=== PATIENT | female | born 1985 | race Two or more races ===

== ENCOUNTER 2016-12-19 18:39 | Emergency (ER) | payer OTHER ==
[2016-12-19] MEDS ORDERED: ALBUTEROL SULFATE 5MG/ML INHALANT 20 ML BOT ONE (19:07)
[2016-12-19] MEDS ORDERED: IPRATROPIUM BROMIDE 0.5 MG/2.5 ML DOSE ONE (19:07)
[2016-12-19] MEDS ORDERED: SODIUM CL FOR INHALATION 3 ML DOSE ONE ×2 (19:08→21:45)
[2016-12-19] MEDS ORDERED: METHYLPRED SOD SUCCINATE 125 MG VIAL ONE (19:19)
[2016-12-19 19:26] LABS: ABSOLUTE NEUTROPHIL COUNT 8.2 K/mm3 (1.8-7.7); BASO # 0.1 K/mm3 (0.0-0.2); BASO % 0.5 % (0.2-1.0); EOS # 0.2 (0.0-0.5); EOS % 1.8 % (0.9-2.9); HEMATOCRIT 43.5 % (37.0-47.0); HEMOGLOBIN 14.2 gm/l (12.0-16.0); IMM NEUT # 0.1 K/mm3 (0-0.2); IMM NEUT% 1.1 % (0-1); LYMPH # 2.1 (1.0-4.8); LYMPH % 17.3 % (15-45); MEAN CELL VOLUME 88.4 fl (81.0-99.0); MEAN CORPUSCULAR HEMOGLOBIN 28.9 pg (27.0-31.0); MEAN CORPUSCULAR HGB CONC 32.6 g/dl (33.0-37.0); MONO # 1.5 (0.0-0.8); MONO % 12.2 % (4-12); NEUT % 67.1 % (43-75); PLATELET COUNT 364 K/mm3 (130-400); RED CELL DISTRIBUTION WIDTH 13.2 % (11.5-14.5)
[2016-12-19] MEDS ORDERED: MAGNESIUM SULFATE 1 G/100 ML 200 ML IV ONE (19:39)
[2016-12-19] MEDS ORDERED: LORAZEPAM 2 MG/ML 1ML SDV ONE (19:40)
[2016-12-19 19:48] LABS: ALB/GLOB RATIO 1.4 (>1.0); ALBUMIN 4.2 gm/dL (3.5-5.7); CALCIUM 9.6 mg/dL (8.6-10.3)
[2016-12-19] MEDS ORDERED: MORPHINE SULFATE 4 MG/ML SYRINGE ONE (20:11)
[2016-12-19] MEDS ORDERED: MORPHINE SULFATE 2 MG/ML SYRINGE ONE (20:11)
--- NOTE | 2016-12-19 20:25 | RAD ---
12/19/2016 8:21 PM CHEST-AP BEDSIDE History: Shortness of breath for 3 days Comparison: 5-11 Findings: Single AP view of the chest is obtained. The lungs are clear with out effusion or pneumothorax. The cardiomediastinal silhouette is unremarkable.. The osseous structures are intact.. Low volumes limit the study. IMPRESSION: Low volumes without discrete pathology.
[2016-12-19 21:38] LABS: ARTERIAL BLOOD GAS BASE EXCESS -8.4 mmol/L (-2.0-2.0); ARTERIAL BLOOD GAS HCO3 15.9 mmol/L (22.0-28.0); ARTERIAL BLOOD GAS PCO2 30.1 mmHg (35.0-45.0); ARTERIAL BLOOD GAS PO2 95.3 mmHg (80.0-90.0); ARTERIAL BLOOD GAS pH 7.34 (7.350-7.450)
== END 2016-12-19 22:52 | disposition short-term general hospital (02) ==
LOC: ED 18:39
DX: J80 Acute respiratory distress syndrome (principal); R07.89 Other chest pain; E66.9 Obesity, unspecified; F17.210 Nicotine dependence, cigarettes, uncomplicated